=== PATIENT | male | born 1955 ===

== ENCOUNTER 2024-01-27 12:44 | Outpatient (AMB) | payer BC, SELFPAY ==
--- NOTE | 2024-01-27 12:57 | MHC.OFFVIS ---
Vital Signs 01/27/24 13:11 Height 5 ft 1 in Weight 148 lb 8 oz BMI 28.1 BP 130/90 H Blood Pressure Location Lt brachial Position Sitting Respiration 16 Pulse 76 Pulse Source Pulse Oximeter Pulse Oximetry (%) 96 Oxygen Delivery Method Room Air Intake Visit Reasons: BILATERAL SHOULDER PAIN Intake Note: Patient comes in for initial visit was referred by primary care. Reports pain 7/10. Allergies No Known Allergies Allergy (Verified 01/27/24 13:10) HPI Comments Details: Michele is very pleasant [place]ian-speaking 68 years old gentleman who presents in my office with complains on pain in bilateral shoulders more on the right and less on the left. He reports that this pain bothers him for past 6 years getting stronger with time. He reports that repetitive motions at work is result of this pain. He reports his pain 7 to 8/10 on the right and 6 on the left. He reports that he can not sleep normally because of his pain can not do activities of daily living he can not take care of himself and he can not function normally. 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 Cold application where the changes in movements aggravate his pain topical medications and oral medications alleviate his pain. His pain is constant and without changes. He reports in terms of tissue damage his pain is tingling, stinging, dull, hurting, heavy, tight, tearing, squeezing. He is prescribed methocarbamol for the pain relief by emergency room. He never had physical therapy for his pain. Apparently he had injections into his shoulders in the past but he denies any help. He does not remember if it was image guided injections. He had x-[facility] done at [facility] for his shoulder which are not available for me today however I suspect significant osteoarthritis of bilateral shoulders more on the right and less on the left. He reports no past medical history no past surgical history he admits smoking cigarettes admits drinking alcohol drinks caffeinated beverages and denies recreational drugs. [facility] Family History (Updated 01/26/24 @ 14:40 by Betsy Man) Sister Breast cancer Review of Systems Const Denies chills, Denies fever(s) and Reports weight gain Eyes Denies blurry vision, Denies exophthalmos and Denies diplopia ENT Reports Normal hearing present, Denies vertigo and Denies dizziness Card Denies chest pain, Denies chest pain at rest, Denies chest pain with activity, Reports diaphoresis, Denies syncope, Denies rapid heart rate, Denies pedal edema and Denies edema Resp Denies chest congestion, Denies cough, Denies hemoptysis, Denies excessive phlegm production, Denies pain on inspiration and Denies pain with cough GI Denies abdominal pain, Denies belching, Denies melena and Denies bloating Denies urinary incontinence Musc Denies as per HPI, Denies back pain and Denies tingling Neuro Reports Normal hearing present, Denies Abnormal speech present, Denies vertigo, Denies dizziness, Denies syncope, Denies lack of coordination, Denies Sensory deficit (Neuro) and Denies tingling Psych Denies no additional complaints and Denies depression Physical Exam Vital Signs: Last Vital Signs Pulse 76 01/27/24 13:11 Resp 16 01/27/24 13:11 BP 130/90 H 01/27/24 13:11 Pulse Ox 96 01/27/24 13:11 Oxygen Delivery Method Room Air 01/27/24 13:11 BMI result Body Mass Index 28.1 Const General: no acute distress, well developed and alert Orientation/consciousness: patient oriented x3 Eyes General: appearance normal, both eyes and all related structures Pupils: Equal, round and reactive pupils present EOM: EOMs intact bilaterally Neck Neck: Yes full ROM Chest Chest palpation & inspection: normal inspection of the chest Resp Effort & Inspection: normal respiratory effort, able to speak in complete sentences, normal respiratory pattern, no audible wheezes and no cough Cardio Jugular venous distension: no JVD GI Inspection: Yes normal to inspection Neuro General: patient oriented x3 Cranial nerves: Yes Equal, round and reactive pupils present and Yes Normal hearing present Speech: No Abnormal speech present Gait exam (Neuro): Normal gait present Motor exam (neuro): 5/5 motor strength present throughout Sensory Exam: No Sensory deficit (Neuro) Extrem Other: Limited range of motion in bilateral shoulders very limited on the right and slightly limited on the left. Crepitus on palpation and tenderness on palpation on the right shoulder. General: No pedal edema Psych Speech and movement: Normal speech and movement present Affect: normal affect Attitude: cooperative Thought process: Normal thought process present Thought content: Normal thought content present Insight: Good insight present (Psych) Judgement: Good judgement present (Psych) Assessment & Plan Assessment & Plan (1) Localized osteoarthritis of shoulder regions, bilateral: Code(s): M19.011 - Primary osteoarthritis, right shoulder; M19.012 - Primary osteoarthritis, left shoulder Category: Medical (2) Chronic pain syndrome: Code(s): G89.4 - Chronic pain syndrome Category: Medical Plan We agreed that I will schedule this patient for image guided right shoulder injection. He reports that right shoulder is much more painful and on physical exam right shoulder is much worse compared to the left shoulder. After that I will evaluate the patient. Possibility exists to treat this patient with peripheral nerve stimulation if the arthritis injection will not help the patient's pain. The peripheral nerve stimulation my be interfered with his work. But that is the discussion of the next appointment. Patient Instructions: The conversation with this patient was facilitated by voice educational sign language interpreter [id number]. Coding Level of Care Code New Pt Level 3 (40077) Diagnoses Localized osteoarthritis of shoulder regions, bilateral M19.011; M19.012 Chronic pain syndrome G89.4
[2024-01-27 13:11] VITALS: BP 130/90; PULSE 76; RESP 16; O2SAT 96; BMI 28.1
== END 2024-01-27 13:32 | disposition home or self-care (01) ==
PROVIDERS: PCP Physician Assistant Medical; Visit Provider Anesthesiology
DX: M19.011 Primary osteoarthritis, right shoulder (principal); M19.012 Primary osteoarthritis, left shoulder; G89.4 Chronic pain syndrome
CPT/HCPCS: 99203

== ENCOUNTER → 2024-01-27 12:44 | Outpatient (BNVA) | payer BC, MEDICARE, SELFPAY | PROVIDERS: PCP Physician Assistant Medical; Visit Provider Anesthesiology | DX: M19.011 Primary osteoarthritis, right shoulder (principal); M19.012 Primary osteoarthritis, left shoulder; G89.4 Chronic pain syndrome | CPT/HCPCS: 99202 ==